=== PATIENT | male | born 1970 | race Caucasian/White ===

== ENCOUNTER 2018-09-17 10:45 | Day surgery (SDC) | payer BC, OTHER ==
[~2018-09-17] VITALS: Ht 188 cm; Wt 73.2 kg
[2018-09-17] VITALS (11 sets, daily range): BP systolic 95–148; BP diastolic 55–87; PULSE 54–76; RESP 10–22; Ht 188 cm; Wt 73.2 kg
[2018-09-17] MEDS ORDERED: METF500T24 PO (11:20)
[2018-09-17] MEDS ORDERED: LOSA50TA14 PO (11:20)
[2018-09-17] MEDS ORDERED: POLYMYXIN/BACITRACIN 1L IRRIG ONE (12:38)
--- NOTE | 2018-09-17 12:49 | HPN ---
Date/Time of Note Date/Time of Note DATE: 09/17/18 TIME: 12:49 Interval H&P Admission Note Pt. seen H&P reviewed: No system changes MIKE CRUZ MD September 17, 2018 12:49
--- NOTE | 2018-09-17 12:52 | PREAC ---
Date/Time of Note Date/Time of Note DATE: 09/17/18 TIME: 12:52 Anesthesia Eval and Record Evaluation Time Pre-Procedure Interview DATE: 09/17/18 TIME: 12:52 Age 48 Sex male NPO: 8 hrs Preoperative diagnosis LEFT INGUINAL HERNIA Planned procedure LEFT INGUINAL HERNIA REPAIR Past Medical History Past Medical History: Includes Cardio: HTN Endo: Diabetes Surgery & Anesthesia Issues No known issue Meds Anticoagulation: No Beta Moraima within 24 hr: No Reason Beta Moraima not given: Pt. not on B-Moraima Reported Medications Losartan Potassium* (Losartan Potassium*) 50 Mg Tablet, 50 MG PO BID, TAB 09/17/18 Metformin Hcl* (Metformin Hcl*) 500 Mg Tablet, 500 MG PO WITH BREAKFAST DINNE, #60 TAB 09/17/18 Current Medications Sodium Chloride 1,000 ml @ 75 mls/hr [id number] IV Last administered on 09/17/18at 12:33; Admin Dose 75 MLS/HR; Start 09/17/18 at 14:00; Stop 09/17/18 at 23:59 Cefazolin Sodium/ Dextrose 50 ml @ 100 mls/hr PRE-OP ONCE IVPB ; Start 09/17/18 at 14:00; Stop 09/17/18 at 14:29 Meds reviewed: Yes Allergies Coded Allergies: No Known Drug Allergy (Verified Allergy, Unknown, 09/17/18) Allergies Reviewed: Yes Labs/Studies Labs Reviewed: Reviewed by anesthesiologist test: N/A Studies: ECG (SR), CXR (NL) Pre-procedure Exam Last vitals Vital Signs Date Temp Pulse Resp B/P (MAP) Pulse Ox O2 O2 Flow FiO2 Time Delivery Rate 09/17/18 97.9 59 16 104/64 99 Room Air 12:34 (77) Airway: Adequate mouth opening Mallampati: Mallampati I Teeth: Normal Lung: Normal Heart: Normal ASA Physical Status ASA physical status: 2 Emergency: None Planned Anesthetic General/MAC: ETT Nerve block: TAP (left) Planned Pain Management Single shot nerve block, Parenteral pain med Pre-operative Attestations Prior to commencing anesthesia and surgery, the patient was re-evaluated, there was verification of: *The patient's identity *The results of appropriate recent lab work and preoperative vital signs *The above evaluation not changing prior to induction *Anesthetic plan, risk benefits, alternative and complications discussed with patient/family; questions answered; patient/family understands, accepts and wishes to proceed. SEVERO BOWLING MD September 17, 2018 12:52
[2018-09-17] MEDS ORDERED: PROPOFOL 20 ML ONE (12:55)
[2018-09-17] MEDS ORDERED: ONDANSETRON 4 MG INJ ONE (12:56)
[2018-09-17] MEDS ORDERED: METOCLOPRAMIDE 10 MG INJ ONE (12:56)
[2018-09-17] MEDS ORDERED: MIDAZOLAM 1 MG/ML 2 ML INJ ONE (12:56)
[2018-09-17] MEDS ORDERED: ROPIVACAINE 0.2% 20 ML VIAL ONE (12:56)
[2018-09-17] MEDS ORDERED: KETOROLAC 30 MG INJ ONE (13:16)
[2018-09-17] MEDS ORDERED: GLYCOPYRROLATE 0.4 MG INJ ONE (13:16)
[2018-09-17] MEDS ORDERED: CEFAZOLIN 1 GM INJ ONE (13:16)
[2018-09-17] MEDS ORDERED: ROCURONIUM 50 MG INJ ONE ×2 (13:16→13:47)
[2018-09-17] MEDS ORDERED: NEOSTIGMINE 3 MG/3 ML SYRINGE ONE (13:16)
[2018-09-17] MEDS ORDERED: BUPIVACAINE 0.25%/EPI (SDV) 30 ML INJ INJ ONE ×2 (13:28→14:23)
[2018-09-17] MEDS ORDERED: FENTAnyl 50 MCG/ML VIAL IV PRN ×3 (14:00)
[2018-09-17] MEDS ORDERED: OXYCODONE/ACETAMINOPHEN (5/325) TAB PO PRN ×2 (14:00)
[2018-09-17] MEDS ORDERED: MEPERIDINE 25 MG INJ IV PRN (14:00)
[2018-09-17] MEDS ORDERED: LABETALOL HCL 20MG INJ IV PRN (14:00)
[2018-09-17] MEDS ORDERED: DIPHENHYDRAMINE 50 MG INJ IV PRN (14:00)
[2018-09-17] MEDS ORDERED: SOD CHLORIDE 0.9% 1,000 ML IV SCH (14:00)
[2018-09-17] MEDS ORDERED: KETOROLAC 30 MG INJ IV PRN (14:00)
[2018-09-17] MEDS ORDERED: hydrALAzine 20 MG INJ IV PRN (14:00)
[2018-09-17] MEDS ORDERED: CEFAZOLIN 2 GM/50 ML (PMX) 50 ML IVPB ONE (14:00)
[2018-09-17] MEDS ORDERED: HYDROmorphONE 1 MG/5 ML IV SYRINGE IV PRN ×3 (14:00)
[2018-09-17] MEDS ORDERED: ONDANSETRON 4 MG INJ IV PRN ×2 (14:00→15:00)
--- NOTE | 2018-09-17 14:43 | OPR ---
Date/Time of Note Date/Time of Note DATE: 09/17/18 TIME: 14:35 Operative Report Procedure Date: September 17, 2018 Preoperative Diagnosis Left inguinal hernia Postoperative Diagnosis Left inguinal hernia Operation/Procedure Performed 1. Open left inguinal hernia repair with mesh 2. Spermatic cord lipectomy 3. Left ilioinguinal nerve block Surgeon see signature line Manager Creative None Anesthesia Type: general Anesthesiologist: SEVERO BOWLING MD Estimated Blood Loss: minimal Transfusion none Specimen 1. Hernia sac 2. Cord lipoma Grafts/Implants Ethicon ultra pro plug and patch size small Complications none Pt Condition Post Procedure: stable Disposition: PACU Indications The patient is a 48-year-old Frisian speaking male with a history of a prior o pen right inguinal hernia repair who presented to the office complaining of a one-month history of a painful left groin bulge. He was diagnosed on clinical exam as having a left inguinal hernia. The patient was scheduled for open right inguinal hernia repair with mesh to prevent sequelae of hernia disease which include, but are not limited to: Incarceration and strangulation. All risks and benefits of the procedure including but not limited to: Wound infection, excessive bleeding, postoperative seroma/hematoma formation, nerve injury which may be temporary versus permanent, injury to the reproductive organs including the vas deferens and the testicle which may lead to testicular atrophy, injury to intra-abdominal organs necessitating subsequent operation, hernia recurrence, chronic pain, etc. were all explained to the patient full detail. The patient fully understood and wished to proceed with the procedure. Informed consent was therefore obtained. Procedure Description The patient was brought to the operating room and placed supine on the operating table. Bilateral sequential compression devices were placed on both lower extremities. A dose of broad-spectrum perioperative intravenous antibiotics was given. After the induction of smooth general anesthesia the patient's abdomen and bilateral groins were prepped and draped in standard surgical fashion. A tap block was performed by the anesthesiologist and will be documented by her separately. The patient had two pre-existing chronic palpable left inguinal lymph nodes just inferior to the inguinal crease. After performance of the surgical timeout 0.25% Marcaine with epinephrine was injected over the area of the incision. Incision was then made using a 15 blade scalpel from the left pubic tubercle towards the left anterior superior iliac spine. Incision was carried down through the skin into the subcutaneous tissues using Bovie electrocautery. Massimo's fascia was incised and the aponeurosis of the external oblique muscle was reached. The aponeurosis of the external oblique muscle was then incised in the direction of its fibers using a 15 blade scalpel and further opened using Metzenbaum scissors. The ilioinguinal nerve was identified on top of the spermatic cord. It was isolated and preserved throughout the entirety of the procedure. Using blunt dissection the spermatic cord was then mobilized off of the floor of the inguinal canal and encircled using a [place] drain. The cord structures were identified and preserved throughout the entirety of the procedure. Cremasteric muscles were incised and dissection of the cord was begun. A moderate size indirect hernia sac was identified. It was dissected off of the cord. There was a lot of fibrosis and scarring of the sac to the cord. Dissection was tediously done isolating the sac from the spermatic cord while preserving the cord structures. Dissection was continued towards the neck of the hernia. Once isolated the sac was opened atraumatically. There appeared to be some stricturing in the midportion of the sac. I was able to pass a Lizet clamp through this. There were no contents incarcerated within the sac. Sac was therefore transected and ligated using a 2-0 Vicryl tie. The sac was passed off the field the specimen. The stump was reduced back into the peritoneal cavity. A small lipoma of the spermatic cord was identified. This was dissected off of the cord, transected and passed off the field as specimen. There was also attenuation and weakening of the floor of the inguinal canal. The indirect hernia defect, the neck of which was smaller than the sac, was then repaired using a small sized Ethicon ultra pro plug. The plug was sutured in place using interrupted 3-0 Vicryl sutures. An onlay mesh was then used to reconstruct the floor of the inguinal canal. It was secured in place using interrupted 2-0 Novafil sutures. Both the plug and the mesh were soaked in antibiotic irrigation prior to placement in the field. A slit was made in the mesh to accommodate the spermatic cord. With the repair complete it was examined and noted to be hemostatic and tension-free. Adequacy of the repair was confirmed via Valsalva procedure performed by the anesthesiologist. The wound cavity was then irrigated with more antibiotic containing irrigation. Spermatic cord was then placed back into its anatomical position. The aponeurosis of the external oblique muscle was then reapproximated using a running 3-0 Vicryl suture. Incision was then closed in layers using a running 3-0 Vicryl suture for the Massimo's fascia. The skin was then reapproximated using 4-0 Monocryl suture in a running subcuticular fashion. Attention was then turned to the left ilioinguinal nerve block. 10 cc of 0.25% Marcaine with epinephrine was then injected in a radial fashion approximately 2 fingerbreadths medial and inferior to the left anterior superior iliac spine. Incision was cleaned and Dermabond was applied. The patient was awoken from anesthesia and transferred to the recovery room in stable condition. Both testicles were palpated and noted to be in their anatomical positions at the end of the case. All counts were correct at the end of the case 2. MIKE CRUZ MD September 17, 2018 14:43
[2018-09-17] MEDS ORDERED: morphine 2 MG INJ IV PRN (15:00)
[2018-09-17] MEDS ORDERED: IBUPROFEN 600 MG TAB PO PRN (15:00)
[2018-09-17] MEDS ORDERED: HYDROCODONE/APAP (5/325) TAB PO PRN ×2 (15:00)
--- NOTE | 2018-09-18 08:40 | PAC ---
Date/Time of Note Date/Time of Note DATE: 09/18/18 TIME: 08:40 Post-Anesthesia Notes Post-Anesthesia Note Last documented vital signs Vital Signs Date Temp Pulse Resp B/P (MAP) Pulse Ox O2 O2 Flow FiO2 Time Delivery Rate 09/17/18 97.8 54 16 95/55 (68) 99 15:30 09/17/18 Room Air 15:26 09/17/18 8.0 14:56 Activity: WNL Respiratory function: WNL Cardiovascular function: WNL Mental status: Baseline Pain reasonably controlled: Yes Hydration appropriate: Yes Nausea/Vomiting absent: No SEVERO BOWLING MD September 18, 2018 08:40
== END 2018-09-17 16:12 | disposition home or self-care (01) ==
LOC: SDS 10:45
PROVIDERS: ATTEND Surgery
DX: K40.90 Unilateral inguinal hernia, without obstruction or gangrene, not specified as recurrent (principal); I10 Essential (primary) hypertension; E11.9 Type 2 diabetes mellitus without complications; Z79.84 Long term (current) use of oral hypoglycemic drugs
CPT/HCPCS: 49505; 82962; 88302; 88304; C1781; J0690; J1170; J1885; J2175; J2250; J2405; J2710; J2765; J2795; Z7512; Z7610